=== PATIENT | female | born 1970 | race African-American/Black ===

== ENCOUNTER 2016-08-26 09:25 | Emergency (ER) | payer SELFPAY ==
[~2016-08-26] VITALS: Ht 170.2 cm; Wt 68.0 kg
[~2016-08-26 09:25] MED LIST: IBUP400T20 PO
[2016-08-26 09:27] VITALS: BP_SYST 180; BP_SYST 95; BP_DIAS 95; BP_DIAS 96; PULSE 16; PULSE 96; RESP 16; TEMP 98; O2SAT 98
--- NOTE | 2016-08-26 10:20 | PD ---
HPI Chief Complaint: Back/ Neck Pain or Injury Time Seen by Provider: 10:20 Travel History International Travel<30 days: No Contact w/Intl Traveler<30days: No Traveled to known affect area: No History of Present Illness HPI 45-year-old female presents to the emergency Department with complaint of left upper back pain just below her scapula 2 days. Reports heavy lifting at her new job and straining her back. Denies paresthesias, loss of sensation, decreased range of motion, decreased strength to all extremities. Denies fever , vomiting. Denies IV drug use. Denies cancer. Denies shortness of breath. Has taken Advil with minimal relief of pain. It has been wearing a back brace with good support and some relief of pain. Pain is aggravated with movement and palpation. No known allergies. Has no other medical complaints. No other modifying factors or associated signs and symptoms. PFSH Past Medical History Anemia: Yes Arthritis: No Asthma: No Autoimmune Disease: No Blood Disorders: No Heart Rhythm Problems: No Cancer: No Cardiovascular Problems: No High Cholesterol: No Chemotherapy: No Chest Pain: No Congestive Heart Failure: No COPD: No Cerebrovascular Accident: No Diminished Hearing: No Endocrine: No Gastrointestinal Disorders: No Genitourinary: No Headaches: No Hypertension: No Immune Disorder: No Musculoskeletal: No Neurologic: No Psychiatric: No Reproductive: Yes (BLEEDING) Respiratory: Yes Immunizations Current: Yes (HEPATITIS) Radiation Therapy: No Seizures: No Sleep Apnea: No : 2 Para: 1 Miscarriage: 1 Dilation and Curettage (D&C): Yes Past Surgical History AICD: No Arteriovenous Shunt: No Gynecologic Surgery: Yes (D&C) Insulin Pump: No Joint Replacement: No Pacemaker: No Other Surgery: Yes (D&C) Social History Alcohol Use: Yes (1-2 beers daily) Tobacco Use: Yes (occas cig) Substance Use: No Allergies-Medications (Allergen,Severity, Reaction): Coded Allergies: No Known Allergies (Verified , 08/26/16) Reported Meds & Prescriptions Reported Meds & Active Scripts Active Ibuprofen 800 Mg Tab 800 Mg PO Q6HR PRN Robaxin (Methocarbamol) 500 Mg Tab 500 Mg PO QID PRN Reported Ibuprofen 400 Mg Tab 400 Mg PO Q4H PRN Review of Systems Except as stated in HPI: all other systems reviewed are Neg Physical Exam Narrative GENERAL: Well-nourished, well-developed female patient, in no acute distress; afebrile, nontoxic-appearing SKIN: Warm and dry. HEAD: Atraumatic. Normocephalic. EYES: Pupils equal and round.. No scleral icterus. No injection or drainage. ENT: Mucosa pink and moist. Airway patent. NECK: Trachea midline. CARDIOVASCULAR: Regular rate and rhythm. No murmur appreciated. RESPIRATORY: No accessory muscle use. Clear to auscultation. Breath sounds equal bilaterally. GASTROINTESTINAL: Rounded. BACK: No midline point tenderness on palpation of the thoracic spine. Reproducible tenderness to the left musculature just below the left scapula of the back. MUSCULOSKELETAL: No obvious deformities. No clubbing. No cyanosis. No edema. NEUROLOGICAL: Awake and alert. Oriented 3. No obvious cranial nerve deficits. Motor grossly within normal limits. Normal speech. PSYCHIATRIC: Appropriate mood and affect; insight and judgment normal. Data Data Last Documented VS Vital Signs Date Time Temp Pulse Resp B/P Pulse Ox O2 Delivery O2 Flow Rate FiO2 08/26/16 09:27 98.0 96 16 180/95 98 Room Air Orders Ibuprofen (Motrin) (08/26/16 10:30) Methocarbamol (Robaxin) (08/26/16 10:30) MDM Medical Decision Making Medical Screen Exam Complete: Yes Emergency Medical Condition: Yes Medical Record Reviewed: Yes Differential Diagnosis Muscle strain, muscle spasm, thoracic back strain Narrative Course 45-year-old female physical examination consistent with muscle strain of left upper back. No midline point tenderness on palpation of the thoracic spine. She is ambulatory with normal gait. Ibuprofen and Robaxin administered in the ER. Ibuprofen or Robaxin prescribed for home. Patient verbalizes understanding and agreement with treatment plan. Patient is medically cleared and stable for discharge. Discussed reasons to return to the emergency department. Instructed patient to follow up with primary care provider. Patient agrees with treatment plan. The patients vital signs are stable and the patient is stable for outpatient follow-up and treatment. Patient discharged home, stable and in no acute distress. Diagnosis Primary Impression: Muscle strain of left upper back Qualified Code: S29.012A - Muscle strain of left upper back, initial encounter Referrals: Primary Care Physician Patient Instructions: General Instructions, Muscle Spasm (ED), Muscle Strain ( ED) Departure Forms: Tests/Procedures, Work Release Enter return to work date: August 26, 2016 Additional Instructions: Tylenol or ibuprofen as directed and as needed to reduce pain Robaxin as prescribed for muscle spasms Get adequate rest Ice and/or heating pad to affected area to reduce pain Avoid aggravating activity; increase activity as tolerated Follow-up with primary care provider Return to the emergency department immediately with worsening symptoms Med/Other Pt SpecificInfo: Prescription(s) given Scripts Ibuprofen 800 Mg [id number] Mg PO Q6HR PRN (PAIN) #30 TAB Ref 0 Prov:Chikis Manuel 08/26/16 Methocarbamol (Robaxin)500 Mg [id number] Mg PO QID PRN (MUSCLE SPASM) #30 TAB Ref 0 Prov:Chikis Manuel 08/26/16 Disposition: 01 DISCHARGE HOME Condition: Stable Chikis Manuel August 26, 2016 10:20
[2016-08-26] MEDS ORDERED: IBUP800T23 PO (10:21)
[2016-08-26] MEDS ORDERED: ROBA500T PO (10:21)
[2016-08-26] MEDS ORDERED: METHOCARBAMOL 500 MG TAB PO ONE (10:30)
[2016-08-26] MEDS ORDERED: IBUPROFEN 800 MG TAB PO ONE (10:30)
== END 2016-08-26 10:43 | disposition home or self-care (01) ==
LOC: NEPK 09:25
DX: S29.012A Strain of muscle and tendon of back wall of thorax, initial encounter (principal); X50.0XXA Overexertion from strenuous movement or load, initial encounter; Y93.89 Activity, other specified; Y92.89 Other specified places as the place of occurrence of the external cause
CPT/HCPCS: 99283